=== PATIENT | male | born 1970 | race Caucasian/White ===

== ENCOUNTER 2016-07-31 11:14 | Emergency (ER) | payer MEDICARE, OTHER ==
--- NOTE | 2016-07-31 13:06 | ED ---
Extremity Problem HPI - General Chief complaint: Extremity Problem,Nontraumatic Stated complaint: DX HERNIA, LEG PAIN AND SWELLING Time Seen by Provider: 07/31/16 12:44 Source: patient, RN notes reviewed Mode of arrival: wheelchair Limitations: no limitations - History of Present Illness Initial comments: Patient is a 46-year-old male presents emergency room for evaluation. Patient states that having bilateral leg swelling for the past week. Patient states it' s been getting worse today. Patient also states that he has an umbilical hernia. Patient states he had repaired 2011. Patient states about 3 weeks ago he began having increasing pain and bulging in his umbilical area. Patient states he is due to see the surgeon for repair in a few days. Patient states he' s having an umbilical hernia repair in August. patient denies any redness or swelling at the area. Patient denies chest pain. patient denies shortness of breath. Patient denies headache or dizziness. Patient states he's having pain in both of his legs. Patient states it causes him pain to walk. Patient denies taking any medications. Patient denies history of diabetes, COPD, heart problems. Patient denies any recent trauma or injury to his legs. Patient denies fevers or chills. Patient states he smokes about a pack a day but has quit today. patient does admit that he was placed on Lasix about a week ago. Patient admits that he does not take Lasix as directed. Patient states he stopped taking Lasix after few days because he did not think it was working. - Related Data Home Medications Medication Instructions Recorded Confirmed Niacin [Niaspan] 1,000 mg PO HS 07/21/13 07/31/16 Atorvastatin Calcium [Lipitor] 20 mg PO DAILY 03/13/15 07/31/16 Potassium Chloride [K-Tab ER] 10 meq PO DAILY 07/31/16 07/31/16 Verapamil HCl [Verapamil ER] 120 mg PO DAILY 07/31/16 07/31/16 Previous Rx's Medication Instructions Recorded Furosemide [Lasix] 40 mg PO DAILY #7 tablet 07/31/16 Allergies Allergy/AdvReac Type Severity Reaction Status Date / Time No Known Allergies Allergy Verified 07/31/16 15:10 Review of Systems ROS Statement: Those systems with pertinent positive or pertinent negative responses have been documented in the HPI. ROS Other: All systems not noted in ROS Statement are negative. 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 History of Any Multi-Drug Resistant Organisms: None Reported Past Surgical History: Hernia Repair, Orthopedic Surgery Additional Past Surgical History / Comment(s): leg surg/pvd, TOTAL LEFT HIP Past Anesthesia/Blood Transfusion Reactions: No Reported Reaction Past Psychological History: No Psychological Hx Reported Smoking Status: Former smoker Past Alcohol Use History: Occasional Additional Past Alcohol Use History / Comment(s): This patient was a heavy drinker up until recently he was arrested for DUI and is currently under house arrest has stopped drinking for the last 2 months Past Drug Use History: Opiates General Exam - General Exam Comments Initial Comments: Sitting in exam room, no acute distress.. Limitations: no limitations General appearance: alert, in no apparent distress Head exam: Present: atraumatic, normocephalic, normal inspection Eye exam: Present: normal appearance ENT exam: Present: normal exam Neck exam: Present: normal inspection Respiratory exam: Present: normal lung sounds bilaterally. Absent: respiratory distress Cardiovascular Exam: Present: regular rate, normal rhythm, normal heart sounds GI/Abdominal exam: Present: soft, hernia (Palpable umbilical hernia). Absent: distended, guarding, rebound Extremities exam: Present: full ROM, normal capillary refill, pedal edema, calf tenderness (bilateral), other (Bilateral pitting pedal edema ) Back exam: Present: normal inspection Neurological exam: Present: alert, oriented X3, CN II-XII intact, normal gait Psychiatric exam: Present: normal affect, normal mood Skin exam: Present: warm, dry, intact, normal color. Absent: rash Course Vital Signs 07/31/16 07/31/16 07/31/16 11:36 14:41 15:36 Temperature 99.2 F 97.5 F L 98.6 F Pulse Rate 94 92 54 L Respiratory 20 18 18 Rate Blood Pressure 124/68 133/76 145/79 O2 Sat by Pulse 94 L 93 L 95 Oximetry 07/31/16 16:00 Temperature 98.1 F Pulse Rate 64 Respiratory 18 Rate Blood Pressure O2 Sat by Pulse 95 Oximetry Medical Decision Making - Medical Decision Making patient is a 46-year-old male since emergency room for evaluation of bilateral leg edema.labs show no concerning findings.Chest x-ray: Severe cardiomegaly with interstitial prominence may been the basis of mild venous congestion or chronic interstitial lung disease. Ultrasounds negative for DVTs. Thoroughly discussed with patient that he needs to continue taking Lasix as directed. Patient be written another prescription for Lasix. Patient given a dose of Lasix while he was here. Labs and imaging reviewed with Dr. Hylton who agrees with treatment plan. Patient will be discharged home. Return parameters discussed. - Lab Data Result diagrams: 07/31/16 13:11 07/31/16 13:11 Lab Results 07/31/16 07/31/16 07/31/16 Range/Units 13:11 13:11 13:11 WBC 7.7 (3.8-10.6) k/uL RBC 5.84 (4.30-5.90) m/uL Hgb 18.9 H (13.0-17.5) gm/dL Hct 58.8 H (39.0-53.0) % MCV 100.6 H (80.0-100.0) fL MCH 32.3 (25.0-35.0) pg MCHC 32.1 (31.0-37.0) g/dL RDW 13.8 (11.5-15.5) % Plt Count 129 L (150-450) k/uL Neutrophils % 66 % Lymphocytes % 23 % Monocytes % 7 % Eosinophils % 1 % Basophils % 0 % Neutrophils # 5.0 (1.3-7.7) k/uL Lymphocytes # 1.7 (1.0-4.8) k/uL Monocytes # 0.5 (0-1.0) k/uL Eosinophils # 0.1 (0-0.7) k/uL Basophils # 0.0 (0-0.2) k/uL Manual Slide Review Performed Large Platelets Present Hypochromasia Slight Poikilocytosis (manual Present Macrocytosis Slight PT INR APTT Sodium 145 (137-145) mmol/L Potassium 4.7 (3.5-5.1) mmol/L Chloride 103 (98-107) mmol/L Carbon Dioxide 30 (22-30) mmol/L Anion Gap 12 mmol/L BUN 20 (9-20) mg/dL Creatinine 1.10 (0.66-1.25) mg/dL Est GFR (MDRD) Af Amer >60 (>60 ml/min/1.73 sqM) Est GFR (MDRD) Non-Af >60 (>60 ml/min/1.73 sqM) Glucose 86 (74-99) mg/dL Plasma Lactic Acid Carl (0.7-2.0) mmol/L Calcium 9.7 (8.4-10.2) mg/dL Magnesium 2.0 (1.6-2.3) mg/dL Total Bilirubin 1.1 (0.2-1.3) mg/dL AST 33 (17-59) U/L ALT 40 (21-72) U/L Alkaline Phosphatase 121 (38-126) U/L Total Creatine Kinase 93 (55-170) U/L CK-MB (CK-2) 2.2 (0.0-2.4) ng/mL CK-MB (CK-2) Rel Index 2.4 Troponin I 0.017 (0.000-0.034) ng/mL NT-Pro-B Natriuret Pep pg/mL Total Protein 7.6 (6.3-8.2) g/dL Albumin 4.2 (3.5-5.0) g/dL Amylase 62 (30-110) U/L Lipase 252 (23-300) U/L 07/31/16 07/31/16 07/31/16 Range/Units 13:11 13:11 13:11 WBC (3.8-10.6) k/uL RBC (4.30-5.90) m/uL Hgb (13.0-17.5) gm/dL Hct (39.0-53.0) % MCV (80.0-100.0) fL MCH (25.0-35.0) pg MCHC (31.0-37.0) g/dL RDW (11.5-15.5) % Plt Count (150-450) k/uL Neutrophils % % Lymphocytes % % Monocytes % % Eosinophils % % Basophils % % Neutrophils # (1.3-7.7) k/uL Lymphocytes # (1.0-4.8) k/uL Monocytes # (0-1.0) k/uL Eosinophils # (0-0.7) k/uL Basophils # (0-0.2) k/uL Manual Slide Review Large Platelets Hypochromasia Poikilocytosis (manual Macrocytosis PT BUSINESS MACHINE OPERATOR INR BUSINESS MACHINE OPERATOR APTT BUSINESS MACHINE OPERATOR Sodium (137-145) mmol/L Potassium (3.5-5.1) mmol/L Chloride (98-107) mmol/L Carbon Dioxide (22-30) mmol/L Anion Gap mmol/L BUN (9-20) mg/dL Creatinine (0.66-1.25) mg/dL Est GFR (MDRD) Af Amer (>60 ml/min/1.73 sqM) Est GFR (MDRD) Non-Af (>60 ml/min/1.73 sqM) Glucose (74-99) mg/dL Plasma Lactic Acid Carl 1.1 (0.7-2.0) mmol/L Calcium (8.4-10.2) mg/dL Magnesium (1.6-2.3) mg/dL Total Bilirubin (0.2-1.3) mg/dL AST (17-59) U/L ALT (21-72) U/L Alkaline Phosphatase (38-126) U/L Total Creatine Kinase (55-170) U/L CK-MB (CK-2) (0.0-2.4) ng/mL CK-MB (CK-2) Rel Index Troponin I (0.000-0.034) ng/mL NT-Pro-B Natriuret Pep 944 pg/mL Total Protein (6.3-8.2) g/dL Albumin (3.5-5.0) g/dL Amylase (30-110) U/L Lipase (23-300) U/L 07/31/16 Range/Units 15:20 WBC (3.8-10.6) k/uL RBC (4.30-5.90) m/uL Hgb (13.0-17.5) gm/dL Hct (39.0-53.0) % MCV (80.0-100.0) fL MCH (25.0-35.0) pg MCHC (31.0-37.0) g/dL RDW (11.5-15.5) % Plt Count (150-450) k/uL Neutrophils % % Lymphocytes % % Monocytes % % Eosinophils % % Basophils % % Neutrophils # (1.3-7.7) k/uL Lymphocytes # (1.0-4.8) k/uL Monocytes # (0-1.0) k/uL Eosinophils # (0-0.7) k/uL Basophils # (0-0.2) k/uL Manual Slide Review Large Platelets Hypochromasia Poikilocytosis (manual Macrocytosis PT 10.7 INR 1.1 APTT 24.3 Sodium (137-145) mmol/L Potassium (3.5-5.1) mmol/L Chloride (98-107) mmol/L Carbon Dioxide (22-30) mmol/L Anion Gap mmol/L BUN (9-20) mg/dL Creatinine (0.66-1.25) mg/dL Est GFR (MDRD) Af Amer (>60 ml/min/1.73 sqM) Est GFR (MDRD) Non-Af (>60 ml/min/1.73 sqM) Glucose (74-99) mg/dL Plasma Lactic Acid Carl (0.7-2.0) mmol/L Calcium (8.4-10.2) mg/dL Magnesium (1.6-2.3) mg/dL Total Bilirubin (0.2-1.3) mg/dL AST (17-59) U/L ALT (21-72) U/L Alkaline Phosphatase (38-126) U/L Total Creatine Kinase (55-170) U/L CK-MB (CK-2) (0.0-2.4) ng/mL CK-MB (CK-2) Rel Index Troponin I (0.000-0.034) ng/mL NT-Pro-B Natriuret Pep pg/mL Total Protein (6.3-8.2) g/dL Albumin (3.5-5.0) g/dL Amylase (30-110) U/L Lipase (23-300) U/L 07/31/16 15:35 Normal sinus rhythm, ventricular rate 94 bpm, IL interval 138 ms, QRS duration 94 ms, QT/QTC 356/445 ms - Radiology Data Radiology results: report reviewed, image reviewed Disposition Clinical Impression: Bilateral leg edema Disposition: HOME SELF-CARE Condition: Good Instructions: Leg Edema (ED) Additional Instructions: Take Lasix as directed. Please follow up with primary care provider in 1-2 days. If any new symptom arises or symptoms worsen, return to ER as soon as possible. Prescriptions: Furosemide [Lasix] 40 mg PO DAILY #7 tablet Referrals: Victor Manuel Bianchi Jr, DO [Primary Care Provider] - 1-2 days Time of Disposition: 15:25
[2016-07-31 13:28] LABS: Basophils % (A) 0 %; CHCM 31.9; Eosinophils # (A) 0.1 k/uL (0-0.7); Eosinophils % (A) 1 %; HCT 58.8 % (39.0-53.0); HDW 2.75; HGB 18.9 gm/dL (13.0-17.5); Hypochromasia Slight; Luc # (Auto) 0.31; Luc % (Auto) 4; Lymphocytes # (A) 1.7 k/uL (1.0-4.8); Lymphocytes % (A) 23 %; MCH 32.3 pg (25.0-35.0); MCHC 32.1 g/dL (31.0-37.0); MCV 100.6 fL (80.0-100.0); Macrocytosis Slight; Mean Platelet Volume 8.6; Monocytes # (A) 0.5 k/uL (0-1.0); Monocytes % (A) 7 %; Neutrophils % (A) 66 %; RBC 5.84 m/uL (4.30-5.90); RDW 13.8 % (11.5-15.5); WBC 7.7 k/uL (3.8-10.6); WBC (Perox) 7.47
--- NOTE | 2016-07-31 13:36 | XR ---
EXAMINATION TYPE: XR chest 2V DATE OF EXAM: 07/31/2016 1:32 PM COMPARISON: NONE TECHNIQUE: PA and lateral views submitted. HISTORY: Chest pain FINDINGS: The lungs are clear and there is no pneumothorax, pleural effusion, or focal pneumonia. The heart i s enlarged and there is a coarsened interstitium. Arthropathy of the shoulders with hypertrophic and degenerative change of the spine. IMPRESSION: 1. Severe cardiomegaly with interstitial prominence may been the basis of mild venous congestion or c hronic interstitial lung disease. Correlate clinically..
[2016-07-31 13:37] LABS: ALT 40 U/L (21-72); AST 33 U/L (17-59); Alkaline Phosphatase 121 U/L (38-126); Amylase 62 U/L (30-110); Anion Gap 12 mmol/L; Blood Urea Nitrogen 20 mg/dL (9-20); Calcium 9.7 mg/dL (8.4-10.2); Carbon Dioxide 30 mmol/L (22-30); Chloride 103 mmol/L (98-107); Glucose 86 mg/dL (74-99); Non-African American GFR(MDRD) >60 (>60 ml/min/1.73 sqM); Potassium 4.7 mmol/L (3.5-5.1); Sodium 145 mmol/L (137-145); Total Bilirubin 1.1 mg/dL (0.2-1.3); Total Protein 7.6 g/dL (6.3-8.2)
[2016-07-31 14:04] LABS: Creatine Kinase MB 2.2 ng/mL (0.0-2.4); Troponin I 0.017 ng/mL (0.000-0.034)
--- NOTE | 2016-07-31 14:30 | US ---
EXAMINATION TYPE: US venous doppler duplex LE BI DATE OF EXAM: 07/31/2016 2:05 PM COMPARISON: US CLINICAL HISTORY: Pain. Bilateral leg pain and swelling SIDE PERFORMED: Bilateral TECHNIQUE: The lower extremity deep venous system is examined utilizing real time linear array sonog mauri with graded compression, doppler sonography and color-flow sonography. VESSELS IMAGED: External Iliac Vein (EIV) Common Femoral Vein Deep Femoral Vein Greater Saphenous Vein * Femoral Vein Popliteal Vein Small Saphenous Vein * Proximal Calf Veins (* superficial vessels) Right Leg: Appears negative for DVT Left Leg: Appears negative for DVT Multiple lymph nodes within bilateral groin with largest on left measuring 3.8cm and largest on right measuring 3.7cm IMPRESSION: 1. No diagnostic evidence of DVT. 2. Inguinal adenopathy.
[2016-07-31 14:42] VITALS: RESP 18
[2016-07-31 14:48] LABS: Manual Review Performed
[2016-07-31 15:02] LABS: Large Platelets Present
[2016-07-31] MEDS ORDERED: FUROSEMIDE 10 MG/ML 4 ML VIAL IV STA (15:27)
[2016-07-31 15:37] VITALS: BP 145/79
[2016-07-31 15:40] LABS: INR 1.1 (<1.1); Partial Thromboplastin Time 24.3 sec (22.0-30.0)
[2016-07-31 16:01] VITALS: PULSE 64; TEMP 98.1
[2016-07-31 16:27] LABS: Prothrombin Time 10.7 sec (9.0-12.0)
== END 2016-07-31 16:40 | disposition home or self-care (01) ==
LOC: EC 11:14
DX: K42.9 Umbilical hernia without obstruction or gangrene (principal); R60.0 Localized edema; I51.7 Cardiomegaly; M79.604 Pain in right leg; M79.605 Pain in left leg; Z87.891 Personal history of nicotine dependence; Z79.899 Other long term (current) drug therapy; Z98.890 Other specified postprocedural states
CPT/HCPCS: 36415; 93005; 83880; 80053; 82150; 82550; 82553; 83605; 83690; 83735; 84484; 85025; 85610; 85730; 87040; 71020; 93970; 99284; 96374; J1940

== ENCOUNTER 2016-12-09 13:11 | Day surgery (SDC) | payer MEDICARE, BC, OTHER ==
[2016-12-07 15:31] VITALS: BMI 35.7
[~2016-12-09 13:11] MED LIST: ALPRAZolam 0.25 MG TAB PO PRN; ALPRAZolam 0.5 MG TAB PO PRN; ASPIRIN 325 MG TAB PO STA; ATORVASTATIN 80 MG TAB PO STA; NITROGLYCERIN SL TABS 0.4 MG TAB SUBLINGUAL PRN; SODIUM CHLORIDE 0.9% 1,000 ML in EMPTY BAG 1 BAG IV ONE
[2016-12-09] MEDS ORDERED: fentaNYL (PF) 50 MCG/ML 2 ML AMP ONE (13:43)
[2016-12-09] MEDS ORDERED: LIDOCAINE 2% INJ 20 MG/ML (20 ML MDV) ONE (13:43)
[2016-12-09] MEDS ORDERED: VERAPAMIL 2.5 MG/ML 2 ML AMP ONE (13:43)
[2016-12-09 13:48] VITALS: RESP 18
[2016-12-09] MEDS ORDERED: IV FLUID CONTINUATION 1,000 ML IV ONE (13:48)
[2016-12-09] MEDS ORDERED: HEPARIN SODIUM 1,000 UN/ML (10ML VL) ONE (14:03)
[2016-12-09] MEDS ORDERED: fentaNYL (PF) 50 MCG/ML 2 ML AMP IV ONE (14:10)
[2016-12-09 14:12] LABS: Basophils % (A) 0 %; CH 30.2; CHCM 31.1; Eosinophils # (A) 0.1 k/uL (0-0.7); Eosinophils % (A) 2 %; HCT 53.3 % (39.0-53.0); HDW 2.34; Hypochromasia Slight; Luc # (Auto) 0.26; Luc % (Auto) 4; Lymphocytes # (A) 1.8 k/uL (1.0-4.8); Lymphocytes % (A) 26 %; MCH 31.1 pg (25.0-35.0); MCHC 31.8 g/dL (31.0-37.0); MCV 97.7 fL (80.0-100.0); Macrocytosis Slight; Mean Platelet Volume 9.2; Monocytes # (A) 0.5 k/uL (0-1.0); Monocytes % (A) 7 %; Neutrophils # (A) 4.5 k/uL (1.3-7.7); Neutrophils % (A) 62 %; RBC 5.46 m/uL (4.30-5.90); RDW 15.8 % (11.5-15.5); WBC 7.1 k/uL (3.8-10.6); WBC (Perox) 7.06
[2016-12-09] MEDS ORDERED: LIDOCAINE 2% INJ 20 MG/ML SQ ONE (14:15)
[2016-12-09] MEDS ORDERED: MIDAZOLAM 2 MG/2 ML VIAL ONE (14:16)
[2016-12-09] MEDS ORDERED: VERAPAMIL SYRINGE (5 MG/10 ML) INTRAARTER ONE (14:16)
[2016-12-09] MEDS ORDERED: MIDAZOLAM 2 MG/2 ML VIAL IV ONE (14:19)
[2016-12-09] MEDS ORDERED: HEPARIN SODIUM 1,000 UN/ML (10ML VL) IV ONE (14:24)
[2016-12-09] MEDS ORDERED: IOHEXOL 350 MG/ML 125ML BOTTLE INJ ONE (14:30)
[2016-12-09] MEDS ORDERED: RX INFO: IV CONTRAST WAS GIVEN 1 EACH MISC MISCELLANE PRN (14:41)
[2016-12-09] MEDS ORDERED: SODIUM CHLORIDE 0.9% 1,000 ML IV SCH (14:45)
[2016-12-09] MEDS ORDERED: CARVEDILOL 6.25 MG TAB PO SCH (18:30)
[2016-12-09 18:34] VITALS: BP 106/77; PULSE 89; TEMP 98
[2016-12-09] MEDS ORDERED: LISINOPRIL 2.5 MG TAB PO SCH (21:00)
--- NOTE | 2016-12-10 06:09 | CC ---
CARDIAC CATHETERIZATION REPORT DATE OF SERVICE: 12/09/2016 Mr. Larson is a 46-year-old male with known history of hypertension, hyperlipidemia, prior history of smoking, who presented recently with symptoms of congestive heart failure and was found to have significant cardiomyopathy. In view of that, recommendations were made regarding cardiac catheterization. The procedures as well as risks and complications were discussed with the patient who is in full understanding and agreement. PROCEDURE: The patient was brought to the nitriles lab technician in a fasting semi state after receiving fentanyl, Benadryl and achieving moderate conscious sedated state. Using Xylocaine anesthesia in Seldinger technique, 6-Chilean sheath was introduced in the right radial artery. Selective right and left coronary angiography performed using 5-Chilean, 3.5 bend right Nargis catheter. Multiple views of the coronary arteries including hemiaxial views were obtained. Following that, 5-Chilean tight pigtail catheter was introduced into the left ventricle and a 30-degree FLETCHER view of the left ventricle was obtained. Following that, catheter and sheaths were removed. Hemostasis was obtained with deployment of a R band. There was no immediate complication. The patient was returned to his room in stable condition. Of note, the patient received 5000 units of intravenous heparin as well as intra- arterial verapamil. FINDING: LEFT MAIN: This is a short size vessel trifurcating in the left circumflex, left anterior descending artery and ramus intermedius. Left main coronary artery is without any significant obstructive coronary artery disease. LEFT ANTERIOR DESCENDING ARTERY: This is a large-sized vessel reaching to the apex with a wraparound apex segment giving rise to a large diagonal branch in the mid segment. The left anterior descending artery and its branches have no evidence of obstructive coronary artery disease. LEFT CIRCUMFLEX: This is a nondominant vessel, large in caliber, giving rise to a large obtuse marginal branch. The left circumflex as well as branches have no evidence of obstructive coronary artery disease. RAMUS INTERMEDIUS: This is a large-sized vessel that has no evidence of high-grade stenosis. RIGHT CORONARY ARTERY: This is a large dominant vessel bifurcating distally PDA and posterolateral segment and branches. The right coronary artery and its branches have no evidence of obstructive coronary artery disease. LEFT VENTRICULOGRAM: Left ventriculogram was performed in 30-degree FLETCHER view and revealed a dilated left ventricle with severe global hypokinesis. The ejection fraction is estimated at 15% to 20%. There was arrhythmia induced mitral regurgitation. HEMODYNAMICS: There was no gradient across the aortic valve. The left ventricular end- diastolic pressure was 24 mmHg. CONCLUSION: 1. Normal coronary arteries. 2. Severely impaired left ventricular systolic function. RECOMMENDATION: In view of finding anatomy, I have recommended continued medical therapy with aggressive treatment for his nonischemic cardiomyopathy and if there is no improvement in left ventricular systolic function then the patient will be a candidate to undergo an ICD implantation. Those findings and recommendation were discussed with the patient and his family and they are in full understanding and agreement. DURATION OF THE PROCEDURE: 21 minutes. MMGIANCARLOL / DANIELN: [id number] /
--- NOTE | 2016-12-10 06:15 | CC ---
CARDIAC CATHETERIZATION REPORT December 09, 2016 Re: Joaquim Larson Dear Dr. Bianchi: I had the opportunity to performed cardiac catheterization on Mr. Larson at [facility] on the 09 of December and a full copy of the procedure note will be forwarded to you. In brief he was found to have normal coronary arteries with a severely impaired left ventricular systolic function and based on those findings, I would recommend to maximize his treatment for nonischemic cardiomyopathy with close followup of his ejection fraction. If he has no improvement, then I believe he will be a candidate for an ICD implantation. Thank you again for allowing me the opportunity to participate in his care. Please feel free to call for any questions. Sincerely yours, Roberto Torres MD. LEVON / KYMBERLY: [id number] /
[2016-12-10] MEDS ORDERED: POTASSIUM CHLORIDE ER 10 MEQ TAB.ER.PRT PO SCH (09:00)
[2016-12-10] MEDS ORDERED: FUROSEMIDE 40 MG TAB PO SCH (09:00)
== END 2016-12-09 20:19 | disposition home or self-care (01) ==
LOC: CATHCVL 13:11 → 3OBS 14:31 → CATHCVL 20:19
PROVIDERS: ATTEND Internal Medicine Interventional Cardiology
DX: I11.0 Hypertensive heart disease with heart failure (principal); I50.23 Acute on chronic systolic (congestive) heart failure; F17.211 Nicotine dependence, cigarettes, in remission; I42.8 Other cardiomyopathies; Z82.49 Family history of ischemic heart disease and other diseases of the circulatory system; E78.2 Mixed hyperlipidemia; G47.33 Obstructive sleep apnea (adult) (pediatric); Z99.81 Dependence on supplemental oxygen; Z79.82 Long term (current) use of aspirin; Z79.899 Other long term (current) drug therapy
CPT/HCPCS: 99152; 93458; 85025; C1894; C1769; J2001; J2250; J3010; J1644; Q9967

== ENCOUNTER → 2017-09-02 | Outpatient (CLI) | payer MEDICARE, OTHER ==
--- NOTE | 2017-09-02 14:51 | PN ---
PROGRESS NOTE DATE OF SERVICE: 09/02/2017 47-year-old gentleman has been followed in [facility] for treatment of obstructive sleep apnea-hypopnea syndrome. Sleep studies in 2016 showed that the patient has severe sleep apnea, but patient had difficulties during titration with the positive air pressure equipment and he did not want to start treatment with CPAP at that time. About 4 months ago, patient had a heart attack. Presently, he continues to snore while he sleeps and has multiple awakenings from sleep. Imperial Sleepiness Scale significantly increased at a very high range 21. MEDICATIONS: Spironolactone, lisinopril, carvedilol, atorvastatin, levofloxacin, Lasix, and the patient is also on oxygen supplement. PHYSICAL EXAM: GENERAL: Patient in no distress. VITAL SIGNS: BP 107/70, HR 95, RR 20, height 5 feet 8 and a half inches and weight 257.0, BMI 38.3, temperature 97.9, respiration 20, oxygen saturation at room air 80%. HEENT: Oropharynx low position of soft palate. Wide neck 17-1/2 inches in circumference. LUNGS: Rales on the bases of the lungs on both sides. HEART: S1, S2 regular. ABDOMEN: Obese. EXTREMITIES: 1 to 2+ bilateral lower leg edema. IMPRESSION: 1. Severe obstructive sleep apnea-hypopnea syndrome documented in 2016. At that time, patient did not get treatment with positive air pressure and did not feel comfortable. 2. Hypertension. 3. Coronary artery disease, status post heart attack about 4 months ago. 4. Congestive heart failure with rales in the low range of the lungs, oxygen desaturation, tachypnea and swelling of the legs. 5. Hyperlipidemia. 6. Status post left hip replacement. 7. Status post nasal fracture. 8. History of smoking for 20 pack years, quit about 2 years ago. 9. Status post left lower leg venous surgery. PLAN: 1. The patient was recommended to go to emergency room for treatment of congestive heart failure. 2. Sleep studies for reevaluation of patient breathing during the sleep and CPAP/BiPAP titration for correction of respiratory abnormalities during sleep. 3. Continue oxygen supplement 24 hours. 4. Losing weight. 5. No driving if feeling any sleepiness. 6. Sleep hygiene with regular time in bed for at least 8 hours. Thank you very much for allowing me to participate in management of your patient. Sincerely, Travis Forrester MD, PhD, FAASM Diplomat of [place] [employer] [place] [employer] Urology Physician Assistant of [facility] MMKRISHNA / KYMBERLY: [id number] /
== END | disposition home or self-care (01) ==
LOC: SLEEP 13:12
PROVIDERS: ATTEND Internal Medicine
DX: G47.33 Obstructive sleep apnea (adult) (pediatric) (principal); I10 Essential (primary) hypertension; I25.10 Atherosclerotic heart disease of native coronary artery without angina pectoris; I50.9 Heart failure, unspecified; E78.5 Hyperlipidemia, unspecified; Z96.642 Presence of left artificial hip joint; Z87.891 Personal history of nicotine dependence; Z87.81 Personal history of (healed) traumatic fracture; Z98.890 Other specified postprocedural states

== ENCOUNTER 2017-09-24 11:04 | Day surgery (SDC) | payer MEDICARE, OTHER ==
[2017-09-20 16:05] VITALS: BMI 39.8
[~2017-09-24 11:04] MED LIST changes: -ALPRAZolam 0.25 MG TAB PO PRN; -ALPRAZolam 0.5 MG TAB PO PRN; -ASPIRIN 325 MG TAB PO STA; -ATORVASTATIN 80 MG TAB PO STA; +LACTATED RINGERS 1,000 ML IV SCH; +LIDOCAINE 1% 20 ML VIAL (10MG/ML) FOR IV START INTRADERMA PRN; -NITROGLYCERIN SL TABS 0.4 MG TAB SUBLINGUAL PRN; -SODIUM CHLORIDE 0.9% 1,000 ML in EMPTY BAG 1 BAG IV ONE
[2017-09-24 11:32] VITALS: RESP 16; TEMP 97.6
[2017-09-24] MEDS ORDERED: PROPOFOL 10 MG/ML 20 ML VIAL IV ONE (11:53)
[2017-09-24] MEDS ORDERED: KETAMINE 10 MG/ML 20 ML VIAL ONE (11:53)
[2017-09-24] MEDS ORDERED: MIDAZOLAM 2 MG/2 ML VIAL ONE (11:53)
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
--- NOTE | 2017-09-24 12:21 | P.OP ---
Date of Procedure: 09/24/17 Preoperative Diagnosis: GI bleed Postoperative Diagnosis: Internal and external hemorrhoids Diverticulosis Procedure(s) Performed: Colonoscopy Anesthesia: MAC Surgeon: Drew Mahoney Pathology: none sent Condition: stable Disposition: PACU Description of Procedure: The patient's placed on the endoscopy table in the lateral position. He received IV sedation. Digital rectal exam was performed which revealed internal /external hemorrhoids. The flexible colonoscope was then placed patient anus passed throughout the entire colon. The ileocecal valve was visualized. The cecum, ascending transverse colon appeared normal. In the descending; there is moderate diverticular changes. [Back the rectum this appeared normal. Scope was withdrawn through the anus and internal and external hemorrhoids were noted. There is no evidence of any GI bleed.
[2017-09-24 13:08] VITALS: BP 142/92; PULSE 86
== END 2017-09-24 13:18 | disposition home or self-care (01) ==
LOC: ORWHC2ENDO 11:04
PROVIDERS: ATTEND Surgery
DX: K64.8 Other hemorrhoids (principal); K64.4 Residual hemorrhoidal skin tags; K57.30 Diverticulosis of large intestine without perforation or abscess without bleeding; I25.119 Atherosclerotic heart disease of native coronary artery with unspecified angina pectoris; I11.0 Hypertensive heart disease with heart failure; I50.9 Heart failure, unspecified; G47.33 Obstructive sleep apnea (adult) (pediatric); E78.5 Hyperlipidemia, unspecified; M19.90 Unspecified osteoarthritis, unspecified site; N42.9 Disorder of prostate, unspecified; H54.40 Blindness, one eye, unspecified eye; Z79.899 Other long term (current) drug therapy; Z99.81 Dependence on supplemental oxygen; Z96.641 Presence of right artificial hip joint; Z87.891 Personal history of nicotine dependence
CPT/HCPCS: 45378; J2250; J2704

== ENCOUNTER 2017-10-28 11:46 | Day surgery (SDC) | payer MEDICARE, OTHER ==
[2017-10-21 11:32] VITALS: BMI 36.5
[~2017-10-28 11:46] MED LIST changes: -LACTATED RINGERS 1,000 ML IV SCH; -LIDOCAINE 1% 20 ML VIAL (10MG/ML) FOR IV START INTRADERMA PRN; +ceFAZolin 1,000 MG in SODIUM CHLORIDE 0.9% IRRIGATIO 250 ML IRRIGATION ONE; +ceFAZolin IN SWFI 2 GM/20 ML SYRINGE IVP ONE
[2017-10-28] MEDS ORDERED: ceFAZolin IN SWFI 2 GM/20 ML SYRINGE IVP ONE (12:00)
[2017-10-28] MEDS ORDERED: ceFAZolin 1,000 MG in SODIUM CHLORIDE 0.9% IRRIGATIO 250 ML IRRIGATION ONE (12:00)
[2017-10-28] MEDS: SODIUM CHLORIDE 0.9% 1,000 ML IV SCH ×3 (12:16→15:21)
[2017-10-28] MEDS ORDERED: SODIUM CHLORIDE 0.9% 500 ML IV ONE (12:52)
[2017-10-28] MEDS ORDERED: fentaNYL (PF) 50 MCG/ML 2 ML AMP ONE (12:52)
[2017-10-28] MEDS ORDERED: MIDAZOLAM 2 MG/2 ML VIAL ONE (12:52)
[2017-10-28] MEDS ORDERED: IOPAMIDOL-370 50ML BTL INJ ONE (13:15)
[2017-10-28] MEDS ORDERED: HYDROcodone/APAP 5-325MG 1 EACH TAB PO PRN (13:21)
[2017-10-28] MEDS ORDERED: FUROSEMIDE 40 MG TAB PO PRN (13:21)
[2017-10-28] MEDS ORDERED: ACETAMINOPHEN TAB 325 MG TAB PO PRN (13:21)
[2017-10-28] MEDS ORDERED: LIDOCAINE 1% INJ 10MG/ML (20 ML MDV) ONE ×2 (13:28)
[2017-10-28] MEDS ORDERED: LIDOCAINE 1% INJ 10MG/ML (20 ML MDV) SQ ONE (13:33)
[2017-10-28] MEDS ORDERED: ACETAMINOPHEN IV (For NPO) 1,000 MG in EMPTY BAG 1 BAG IVPB ONE (15:00)
--- NOTE | 2017-10-28 15:32 | LTR ---
October 28, 2017 Dear Victor Manuel: I had the pleasure of seeing Joaquim Larson in electrophysiology followup. Joaquim underwent a single-chamber ICD implantation for primary prevention of sudden cardiac on account of his cardiomyopathy and heart failure. He will continue to follow with you and Dr. Torres as before. Thank you for entrusting us with the care of your patient. Warm regards. Sincerely, LEVON / KYMBERLY: [id number] /
--- NOTE | 2017-10-28 15:32 | CE ---
CARDIAC ELECTROPHYSIOLOGY REPORT Joaquim Larson is a 47-year-old male patient of Dr. Bianchi and Dr. Torres who has severe non-ischemic cardiomyopathy that has not improved with medical treatment. Ejection fraction remains less than 30%. He has class 2-3 heart failure. His Lasix dose was recently increased in the last month. Patient was brought to the EP lab in a fasting state. Written informed consent was obtained prior to the procedure. The left shoulder area was prepped and draped as per protocol. 1% lidocaine used for local anesthesia. A 4 cm incision was made parallel to the deltopectoral groove, about 1.5 cm medial to it. The incision was carried down to the level of the pectoralis muscle. A subfascial pocket was made. The left axillary vein was accessed at a single point and via appropriately-sized introducer sheath. A Medtronic ICD lead 69 35 cm Sprint Quattro MRI was screwed in the mid RV septum. This current VG protocol was was employed. The sheath was removed. The lead was secured to the underlying pectoralis fascia using 2 nonabsorbable sutures. Pocket was irrigated with antibiotic director mobile media solutions was connected to the generator. The generator was implanted. This is a Medtronic single- chamber ICD Visiaf MRI, VR, model number [id number], serial number [id number]. The lead and generator were then placed in subfascial pocket and the wound was closed in 3 layers and dressed per protocol. RESULTS: Successful single-chamber implantation for primary prevention of sudden cardiac . Device is programmed to 2 zones of therapy with appropriate antitachycardia pacing cardioversion defibrillation with long detection intervals to minimize inappropriate shocks. The patient tolerated the procedure well without any acute complications. Now his medication will be maximized even further and he will be brought back for ICD testing under anesthesia within the next 3 months. MMODL / IJN: [id number] /
[2017-10-28] MEDS: CARVEDILOL 6.25 MG TAB PO SCH (18:30)
[2017-10-28] MEDS: ceFAZolin IN SWFI 2 GM/20 ML SYRINGE IVP SCH ×2 (18:30→23:05)
[2017-10-28] MEDS: LISINOPRIL 5 MG TAB PO SCH (20:09)
[2017-10-29] MEDS: ceFAZolin IN SWFI 2 GM/20 ML SYRINGE IVP SCH ×2 (05:33→11:33)
[2017-10-29 08:05] VITALS: BP 117/80; PULSE 80; RESP 18; TEMP 98.3
--- NOTE | 2017-10-29 08:06 | P.DS ---
Providers Attending physician: Zohaib Mina Primary care physician: [facility] Course: Patient is doing well. Small hematoma over the ICD site. No chest discomfort. Just some local discomfort. 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 status post single chamber ICD implant Plan May go home after completion of IV antibiotics, if chest x-ray is within normal limits and if device interrogation is within normal limits Patient Condition at Discharge: Stable Plan - Discharge Summary Discharge Rx Participant: No New Discharge Prescriptions: No Action Carvedilol [Coreg] 6.25 mg PO BID Lisinopril [Zestril] 5 mg PO BID Atorvastatin [Lipitor] 20 mg PO DAILY Furosemide [Lasix] 40 mg PO BID PRN PRN Reason: Edema Discharge Medication List Carvedilol [Coreg] 6.25 mg PO BID 12/07/16 [History] Atorvastatin [Lipitor] 20 mg PO DAILY 09/20/17 [History] Lisinopril [Zestril] 5 mg PO BID 09/20/17 [History] Furosemide [Lasix] 40 mg PO BID PRN 10/21/17 [History]
[2017-10-29] MEDS: LISINOPRIL 5 MG TAB PO SCH (08:10)
[2017-10-29] MEDS: CARVEDILOL 6.25 MG TAB PO SCH (08:10)
[2017-10-29] MEDS ORDERED: ATORVASTATIN 20 MG TAB PO SCH (09:00)
--- NOTE | 2017-10-29 10:27 | XR ---
EXAMINATION TYPE: XR chest 2V DATE OF EXAM: 10/29/2017 COMPARISON: Prior chest 07/31/2016 HISTORY: Lead placement check TECHNIQUE: Frontal and lateral views of the chest are obtained. FINDINGS: There is been interval placement of the generator in the left pectoral region, intracardia c lead in the right ventricle. No evident pneumothorax or pleural effusion. Heart remains enlarged. I nterstitium is increased. Pulmonary vascularity and jess are similar appearance. Prominent lung volum e may be indicative of COPD. IMPRESSION: No evident complication status post defibrillator placement, there may be a chronic comp onent of pulmonary venous hypertension and interstitial edema.
[2017-10-29] MEDS: SODIUM CHLORIDE 0.9% 1,000 ML IV SCH ×2 (11:32)
== END 2017-10-29 12:35 | disposition home or self-care (01) ==
LOC: CATHEP 11:46 → 3OBS 14:32 → CATHEP 10-29 12:35
PROVIDERS: ATTEND Internal Medicine Clinical Cardiac Electrophysiology
DX: I42.8 Other cardiomyopathies (principal); I11.0 Hypertensive heart disease with heart failure; I50.23 Acute on chronic systolic (congestive) heart failure; Z00.6 Encounter for examination for normal comparison and control in clinical research program; F17.210 Nicotine dependence, cigarettes, uncomplicated; G47.33 Obstructive sleep apnea (adult) (pediatric); E78.2 Mixed hyperlipidemia; Z79.899 Other long term (current) drug therapy; Z82.49 Family history of ischemic heart disease and other diseases of the circulatory system
CPT/HCPCS: 94760; 33249; 71046; C1769 ×2; C1892; C1895; C1722; J2250; J0690 ×3; J2001; J3010; Q9967

== ENCOUNTER → 2017-11-25 | Outpatient (CLI) | payer MEDICARE, OTHER ==
--- NOTE | 2017-11-25 14:57 | SFUN ---
SLEEP CENTER FOLLOW UP NOTE DATE OF SERVICE: 11/25/2017 47-year-old gentleman has been followed in Sleep Center for treatment of severe obstructive sleep apnea-hypopnea syndrome. The patient came for followup visit. He received his new CPAP unit about 3 months ago. Recently he is able to use it every night and sleeps better with the machine and feels better during the day. No snoring with the machine. [place] Sleepiness Scale today is 6, which is in normal range. I checked his CPAP unit. CPAP pressure is 8 cm of water. Usage is 27/30 nights and 19/30 nights for more than 4 hours, average 5.3 hours. High leak, 97 L/minute. Apnea-hypopnea index 7.0. MEDICATIONS: Spironolactone, lisinopril carvedilol, atorvastatin, levofloxacin, Lasix, Patient also using oxygen supplementation with his CPAP unit. PHYSICAL EXAM: GENERAL Patient in no distress. VITAL SIGNS BP 134/80, HR 95, RR 16, weight 243.6, temperature 98.3. HEENT PERRLA, EOMI, evaluation of oropharynx showed extremely low position of soft palate. NECK Supple, no JVD. Thyroid is not palpable. LUNGS Clear to percussion and to auscultation. Good air exchange. No wheezing or rhonchi. HEART S1, S2 regular. No murmurs, gallops, or rubs. ABDOMEN Obese. Soft and nontender. Bowel sounds are present. No organomegaly appreciated. EXTREMITIES No clubbing or cyanosis. CONSTRUCTION SALES REPRESENTATIVE Awake, alert, and oriented X3. Cranial nerves 2 to 7 intact. There is no fasciculation or atrophy. noted. No focal deficits observed. IMPRESSION: 1. Extremely severe obstructive sleep apnea-hypopnea syndrome; apnea-hypopnea index 80.8% with severe oxygen desaturation, mostly on control with CPAP at 8 cm of water with oxygen supplement. The patient benefitting from treatment. 2. Hypertension. 3. Coronary artery disease, status post heart attack. 4. Status post permanent pacemaker insertion recently. 5. History of congestive heart failure. 6. Hyperlipidemia. 7. Status post left hip replacement. 8. Status post nasal fracture. 9. History of smoking in the past, about 20 pack years, quit 2 years ago. 10.Status post left lower leg surgery for venous problems. PLAN: 1. Patient will continue to use CPAP equipment every night for the whole night. I will slightly increase CPAP pressure to 10 cm of water. I will put machine to automatic regimen with the range of pressure 7-10. 2. Losing weight. 3. Sleep hygiene with regular time in bed for at least 7.5 - 8 hours. 4. No driving if feels any sleepiness. 5. Patient will continued to use the same mask with attention to possible leak. Also, we may consider to use different style of mask, possibly [place]. Thank you very much for allowing me to participate in management of your patient. Sincerely, Travis Forrester MD, PhD, FAASM Diplomat of [place] [employer] [place] [employer] Interventional Nurse of [facility] [place] MMODL / IJN: [id number] /
== END | disposition home or self-care (01) ==
LOC: SLEEP 13:53
PROVIDERS: ATTEND Internal Medicine
DX: G47.33 Obstructive sleep apnea (adult) (pediatric) (principal); E78.5 Hyperlipidemia, unspecified; S02.2XXD Fracture of nasal bones, subsequent encounter for fracture with routine healing; I25.10 Atherosclerotic heart disease of native coronary artery without angina pectoris; I10 Essential (primary) hypertension; I25.2 Old myocardial infarction; Z99.89 Dependence on other enabling machines and devices; Z79.2 Long term (current) use of antibiotics; Z79.899 Other long term (current) drug therapy; Z99.81 Dependence on supplemental oxygen; Z96.642 Presence of left artificial hip joint; Z87.891 Personal history of nicotine dependence; Z98.890 Other specified postprocedural states

== ENCOUNTER 2018-01-20 05:53 | Day surgery (SDC) | payer MEDICARE, OTHER ==
[2018-01-13 15:52] VITALS: BMI 35.9
[~2018-01-20 05:53] MED LIST changes: +LACTATED RINGERS 1,000 ML IV SCH; +SODIUM CHLORIDE 0.9% 1,000 ML IV SCH; -ceFAZolin 1,000 MG in SODIUM CHLORIDE 0.9% IRRIGATIO 250 ML IRRIGATION ONE; -ceFAZolin IN SWFI 2 GM/20 ML SYRINGE IVP ONE
[2018-01-20 06:51] VITALS: TEMP 98.1
[2018-01-20] MEDS ORDERED: LIDOCAINE 1% INJ 10MG/ML (20 ML MDV) ONE (07:15)
[2018-01-20] MEDS ORDERED: PROPOFOL 10 MG/ML 20 ML VIAL IV ONE (07:15)
[2018-01-20] MEDS ORDERED: IV FLUID CONTINUATION 1,000 ML IV ONE (07:15)
--- NOTE | 2018-01-20 07:55 | P.PCN ---
Preoperative Diagnosis: Diagnosis Current myopathy Single chamber ICD Congestive heart failure Cinefluoroscopy of the leads revealed a single coil [employer] ICD lead screwed in the mid RV septum in stable position ICD was interrogated this is a [employer] visia af device serial number [id number] Pacing impedance 418 ohms from are related to RV coil RV defib 72 ohms R waves 7 mV Pacing threshold 0.5 V at 0.5 ms DFT testing under anesthesia a shock and T wave protocol was used to induce ventricular fibrillation. This was adequately and appropriately detected at least sensitivity and successfully internally defibrillated with a 20 J shock. A 10 J shock failed. Shocking impedance 76 ohms charge time 4 seconds no post shock noise no dropouts The device was then reprogrammed first cardioversion 20 J first defibrillation 35 J appropriate antitachycardia pacing cardioversion defibrillations programmed Result Fluoroscopically lead in stable position I DFT of 20 J Device reveals normal function 1 short run of nonsustained ventricular tachycardia noted Anesthesia: MAC
[2018-01-20 09:00] VITALS: BP 107/60; PULSE 68; RESP 20
== END 2018-01-20 08:50 | disposition home or self-care (01) ==
LOC: CATHEP 05:53
PROVIDERS: ATTEND Internal Medicine Clinical Cardiac Electrophysiology
DX: I42.8 Other cardiomyopathies (principal); I11.0 Hypertensive heart disease with heart failure; I50.23 Acute on chronic systolic (congestive) heart failure; E78.5 Hyperlipidemia, unspecified; Z82.49 Family history of ischemic heart disease and other diseases of the circulatory system; F17.210 Nicotine dependence, cigarettes, uncomplicated; G47.33 Obstructive sleep apnea (adult) (pediatric); E66.9 Obesity, unspecified; Z68.36 Body mass index [BMI] 36.0-36.9, adult; Z79.899 Other long term (current) drug therapy
CPT/HCPCS: 93642; 76000; J2001; J2704

== ENCOUNTER 2018-04-29 13:38 | Emergency (ER) | payer MEDICARE, OTHER ==
--- NOTE | 2018-04-29 14:19 | ED ---
General Adult HPI - General Chief complaint: Weakness Stated complaint: Dizziness Time Seen by Provider: 04/29/18 13:44 Source: patient, RN notes reviewed, old records reviewed Mode of arrival: ambulatory Limitations: no limitations - History of Present Illness Initial comments: 48-year-old male with past medical history cardiomyopathy, status post pacemaker defibrillator, diabetes presenting with chief complaint of dyspnea, generalized weakness, and blurry vision which began approximately one week prior. Patient states he has had increased lower extremity swelling. He reports blurry vision when she does endorse some double vision as well, worse in the left eye. Denies headache. Denies limb weakness or numbness. Denies chest pain. Denies cough. Denies abdominal pain. Denies nausea or vomiting. He does state he is feeling lightheaded and dizzy. He's had difficulty with ambulation secondary to both dyspnea and dizziness. 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 - Related Data Home Medications Medication Instructions Recorded Confirmed Carvedilol [Coreg] 6.25 mg PO BID 12/07/16 04/29/18 Atorvastatin [Lipitor] 20 mg PO DAILY 09/20/17 04/29/18 Lisinopril [Zestril] 5 mg PO BID 09/20/17 04/29/18 Furosemide [Lasix] 40 mg PO BID PRN 10/21/17 04/29/18 Allergies Allergy/AdvReac Type Severity Reaction Status Date / Time No Known Allergies Allergy Verified 04/29/18 14:15 Review of Systems ROS Statement: Those systems with pertinent positive or pertinent negative responses have been documented in the HPI. ROS Other: All systems not noted in ROS Statement are negative. Past Medical History Past Medical History: Eye Disorder, Osteoarthritis (OA), Sleep Apnea/CPAP/BIPAP Additional Past Medical History / Comment(s): SEE DR PABLO H&P HX chronic wounds on extremities. (STATES NONE AT THIS TIME) BLIND LT EYE. USES O2, STATES ATTACHED TO CPAP. HX HEMORRHOIDS, History of Any Multi-Drug Resistant Organisms: None Reported Past Surgical History: AICD, Hernia Repair, Joint Replacement, Orthopedic Surgery Additional Past Surgical History / Comment(s): LT Leg VARICOSE VEIN PROC. TOTAL LEFT HIP. RT ARM TENDON BICEP REPAIR. COLONOSCOPY Past Anesthesia/Blood Transfusion Reactions: Previous Problems w/ Anesthesia Additional Past Anesthesia/Blood Transfusion Reaction / Comment(s): WOKE UP DURING TOTAL HIP Type of Cardiac Device: AICD Device Placement Date:: 10/28/17 Past Psychological History: No Psychological Hx Reported Smoking Status: Former smoker Past Alcohol Use History: None Reported Past Drug Use History: None Reported - Past Family History Mother Family Medical History: Cancer Father Family Medical History: Deep Vein Thrombosis (DVT) Additional Family Medical History / Comment(s): POSS DVT, PATIENT STATES "HE HAD A BYPASS ON HIS LEG." General Exam Limitations: no limitations General appearance: alert, in no apparent distress Head exam: Present: atraumatic, normocephalic Eye exam: Present: normal appearance, EOMI (left eye Medial gaze palsy), conjunctival injection (Bilateral). Absent: PERRL (Pupils 2 mm bilaterally, sluggish, chemosis left eye,), periorbital swelling, periorbital tenderness ENT exam: Present: normal exam Neck exam: Present: normal inspection, tenderness Respiratory exam: Present: normal lung sounds bilaterally. Absent: respiratory distress, wheezes Cardiovascular Exam: Present: regular rate, normal rhythm GI/Abdominal exam: Present: soft, distended. Absent: tenderness, guarding Extremities exam: Present: pedal edema, other (Chronic venous stasis) Neurological exam: Present: alert, oriented X3, motor sensory deficit (Left eye medial gaze palsy). Absent: CN II-XII intact Psychiatric exam: Present: normal affect, normal mood Skin exam: Present: warm, dry, intact. Absent: cyanosis Course Vital Signs 04/29/18 04/29/18 13:40 15:30 Temperature 97.8 F Pulse Rate 87 86 Respiratory 22 16 Rate Blood Pressure 142/63 110/71 O2 Sat by Pulse 95 96 Oximetry EKG Findings - EKG Comments: EKG Findings:: EKG: Sinus tachycardia with PACs, low-voltage QRS, ventricular rate 101, [place] interval 124, QRS duration 94, QTC [address] segment elevation Medical Decision Making - Medical Decision Making 48-year-old male multiple chronic medical problems resenting with some gait instability, double vision and blurry vision which began on Wednesday which was more than 5 days prior to arrival. On exam patient has a medial gaze palsy on the left. There is concern for ischemic etiology, head CT is obtained which shows subacute infarct of the left joe. Patient has normal CBC, CMP does reveal mild hyperkalemia 5.2, mildly elevated bili, ALT, and alkaline phosphatase, likely secondary to congestion, patient is in mild heart failure exacerbation as well with pulmonary edema on chest x-ray, rales on exam. BNP of 1740. Patient is given Lasix for heart failure, aspirin both for cardioprotection and subacute ischemic stroke. He will be transferred to [facility] for further stroke evaluation. Accepting physician Dr. Montoya - Lab Data Result diagrams: 04/29/18 14:25 04/29/18 14:25 Lab Results 04/29/18 04/29/18 04/29/18 Range/Units 14:25 14:25 14:25 WBC 7.0 (3.8-10.6) k/uL RBC 5.21 (4.30-5.90) m/uL Hgb 16.4 (13.0-17.5) gm/dL Hct 54.7 H (39.0-53.0) % MCV 104.8 H (80.0-100.0) fL MCH 31.4 (25.0-35.0) pg MCHC 29.9 L (31.0-37.0) g/dL RDW 15.4 (11.5-15.5) % Plt Count 138 L (150-450) k/uL Neutrophils % 70 % Lymphocytes % 17 % Monocytes % 8 % Eosinophils % 1 % Basophils % 0 % Neutrophils # 4.9 (1.3-7.7) k/uL Lymphocytes # 1.2 (1.0-4.8) k/uL Monocytes # 0.6 (0-1.0) k/uL Eosinophils # 0.1 (0-0.7) k/uL Basophils # 0.0 (0-0.2) k/uL Hypochromasia Marked Macrocytosis Moderate PT (9.0-12.0) sec INR (<1.2) APTT (22.0-30.0) sec Sodium 139 (137-145) mmol/L Potassium 5.2 H (3.5-5.1) mmol/L Chloride 99 (98-107) mmol/L Carbon Dioxide 33 H (22-30) mmol/L Anion Gap 7 mmol/L BUN 21 H (9-20) mg/dL Creatinine 0.81 (0.66-1.25) mg/dL Est GFR (CKD-EPI)AfAm >90 (>60 ml/min/1.73 sqM) Est GFR (CKD-EPI)NonAf >90 (>60 ml/min/1.73 sqM) Glucose 116 H (74-99) mg/dL Calcium 9.2 (8.4-10.2) mg/dL Magnesium 1.7 (1.6-2.3) mg/dL Total Bilirubin 1.7 H (0.2-1.3) mg/dL AST 52 (17-59) U/L ALT 97 H (21-72) U/L Alkaline Phosphatase 157 H (38-126) U/L Total Creatine Kinase 69 (55-170) U/L CK-MB (CK-2) 1.7 (0.0-2.4) ng/mL CK-MB (CK-2) Rel Index 2.5 Troponin I 0.030 (0.000-0.034) ng/mL NT-Pro-B Natriuret Pep pg/mL Total Protein 6.9 (6.3-8.2) g/dL Albumin 3.8 (3.5-5.0) g/dL 04/29/18 04/29/18 Range/Units 14:25 14:25 WBC (3.8-10.6) k/uL RBC (4.30-5.90) m/uL Hgb (13.0-17.5) gm/dL Hct (39.0-53.0) % MCV (80.0-100.0) fL MCH (25.0-35.0) pg MCHC (31.0-37.0) g/dL RDW (11.5-15.5) % Plt Count (150-450) k/uL Neutrophils % % Lymphocytes % % Monocytes % % Eosinophils % % Basophils % % Neutrophils # (1.3-7.7) k/uL Lymphocytes # (1.0-4.8) k/uL Monocytes # (0-1.0) k/uL Eosinophils # (0-0.7) k/uL Basophils # (0-0.2) k/uL Hypochromasia Macrocytosis PT 12.5 H (9.0-12.0) sec INR 1.2 H (<1.2) APTT 24.5 (22.0-30.0) sec Sodium (137-145) mmol/L Potassium (3.5-5.1) mmol/L Chloride (98-107) mmol/L Carbon Dioxide (22-30) mmol/L Anion Gap mmol/L BUN (9-20) mg/dL Creatinine (0.66-1.25) mg/dL Est GFR (CKD-EPI)AfAm (>60 ml/min/1.73 sqM) Est GFR (CKD-EPI)NonAf (>60 ml/min/1.73 sqM) Glucose (74-99) mg/dL Calcium (8.4-10.2) mg/dL Magnesium (1.6-2.3) mg/dL Total Bilirubin (0.2-1.3) mg/dL AST (17-59) U/L ALT (21-72) U/L Alkaline Phosphatase (38-126) U/L Total Creatine Kinase (55-170) U/L CK-MB (CK-2) (0.0-2.4) ng/mL CK-MB (CK-2) Rel Index Troponin I (0.000-0.034) ng/mL NT-Pro-B Natriuret Pep 1790 pg/mL Total Protein (6.3-8.2) g/dL Albumin (3.5-5.0) g/dL Critical Care Time Critical Care Time: Yes Total Critical Care Time: 35 Disposition Clinical Impression: CVA (cerebral vascular accident), CHF (congestive heart failure) Disposition: OTHER INSTITUTION NOT DEFINED Condition: Serious Is patient prescribed a controlled substance at d/c from ED?: No Referrals: Victor Manuel Bianchi Jr, [Primary Care Provider] - 1-2 days Time of Disposition: 15:57 Decision Date: 04/29/18 - Out of Hospital Transfer - Req. Specs Out of Hospital Transfer - Requested Specifics: Other Emergency Center ( Transferred to [facility])
[2018-04-29 14:56] LABS: ALT 97 U/L (21-72); AST 52 U/L (17-59); Albumin 3.8 g/dL (3.5-5.0); Alkaline Phosphatase 157 U/L (38-126); Anion Gap 7 mmol/L; Basophils % (A) 0 %; Blood Urea Nitrogen 21 mg/dL (9-20); Calcium 9.2 mg/dL (8.4-10.2); Carbon Dioxide 33 mmol/L (22-30); Chloride 99 mmol/L (98-107); Eosinophils # (A) 0.1 k/uL (0-0.7); Eosinophils % (A) 1 %; Glucose 116 mg/dL (74-99); HCT 54.7 % (39.0-53.0); HGB 16.4 gm/dL (13.0-17.5); Hypochromasia Marked; Lymphocytes # (A) 1.2 k/uL (1.0-4.8); Lymphocytes % (A) 17 %; MCH 31.4 pg (25.0-35.0); MCHC 29.9 g/dL (31.0-37.0); MCV 104.8 fL (80.0-100.0); Macrocytosis Moderate; Magnesium 1.7 mg/dL (1.6-2.3); Mean Platelet Volume 7.7; Monocytes # (A) 0.6 k/uL (0-1.0); Monocytes % (A) 8 %; Neutrophils # (A) 4.9 k/uL (1.3-7.7); Neutrophils % (A) 70 %; Platelet Count 138 k/uL (150-450); Potassium 5.2 mmol/L (3.5-5.1); RBC 5.21 m/uL (4.30-5.90); RDW 15.4 % (11.5-15.5); Sodium 139 mmol/L (137-145); Total Bilirubin 1.7 mg/dL (0.2-1.3); Total Protein 6.9 g/dL (6.3-8.2)
[2018-04-29 14:58] LABS: INR 1.2 (<1.2); Partial Thromboplastin Time 24.5 sec (22.0-30.0); Prothrombin Time 12.5 sec (9.0-12.0)
--- NOTE | 2018-04-29 14:59 | XR ---
EXAMINATION TYPE: XR chest 2V DATE OF EXAM: 04/29/2018 COMPARISON: Prior chest x-ray 10/29/2017 HISTORY: Difficulty breathing TECHNIQUE: Frontal and lateral views of the chest are obtained. FINDINGS: The heart is enlarged. Technique is somewhat apical lordotic. Intracardiac defibrillator i s present, generator in the left pectoral region, lead is stable in the right ventricle. No pneumotho rax or pleural effusion. Central vascularity and interstitium are increased. Prominent lung volumes s uggest underlying COPD. Minimal patchy basilar density noted. IMPRESSION: Correlate for possible pulmonary venous hypertension and interstitial edema. Follow-up r ecommended.
[2018-04-29 15:22] LABS: Creatine Kinase MB 1.7 ng/mL (0.0-2.4); Troponin I 0.03 ng/mL (0.000-0.034)
[2018-04-29] MEDS ORDERED: FUROSEMIDE 10 MG/ML 4 ML VIAL IV STA (15:27)
--- NOTE | 2018-04-29 15:32 | CT ---
EXAMINATION TYPE: CT brain wo con DATE OF EXAM: 04/29/2018 COMPARISON: None HISTORY: Weakness and double vision CT DLP: 1142.4 mGycm. Automated Exposure Control for Dose Reduction was Utilized. TECHNIQUE: CT scan of the head is performed without contrast. FINDINGS: There is low attenuation present within the left joe. There is no acute intracranial hemo rrhage, mass effect, or midline shift identified. The ventricles and sulci are within normal limits in size. The globes are intact and the visualized sinuses are remarkable for inflammatory change in the maxillary sinuses. IMPRESSION: Subacute infarct suspected in the left joe. Consider MRI.
[2018-04-29] MEDS ORDERED: ASPIRIN 325 MG TAB PO STA (15:45)
[2018-04-29 17:18] VITALS: BP 120/89; PULSE 87; RESP 20; TEMP 98.1
== END 2018-04-29 17:18 | disposition other institution (70) ==
LOC: EC 13:38
DX: I63.9 Cerebral infarction, unspecified (principal); R29.701 NIHSS score 1; I11.0 Hypertensive heart disease with heart failure; I43 Cardiomyopathy in diseases classified elsewhere; I50.1 Left ventricular failure, unspecified; E87.5 Hyperkalemia; R74.0 Nonspecific elevation of levels of transaminase and lactic acid dehydrogenase [LDH]; R79.89 Other specified abnormal findings of blood chemistry; M19.90 Unspecified osteoarthritis, unspecified site; G47.30 Sleep apnea, unspecified; Z99.89 Dependence on other enabling machines and devices; Z95.810 Presence of automatic (implantable) cardiac defibrillator; Z96.642 Presence of left artificial hip joint; Z87.891 Personal history of nicotine dependence; Z87.820 Personal history of traumatic brain injury; Z79.899 Other long term (current) drug therapy
CPT/HCPCS: 36415; 93005; 83880; 80053; 82550; 82553; 83735; 84484; 85025; 85610; 85730; 71046; 70450; 99291; 96374; J1940

== ENCOUNTER → 2019-01-05 | Outpatient (CLI) | payer MEDICARE, OTHER ==
[2019-01-05 23:37] LABS: African American GFR (CKD) 121.6 (60.0-200.0); Albumin 4.7 g/dL (3.80-4.90); Albumin/Globulin Ratio 2.24 (1.60-3.17); Anion Gap 6.7 mmol/L (4.00-12.00); Carbon Dioxide 33.3 mmol/L (21.6-31.8); Chol/HDL Ratio 3.71; Globulin 2.1 g/dL (1.6-3.3); LDL Cholesterol,Calculated 36.8 mg/dL (0.0-131.0); Potassium 4.5 mmol/L (3.5-5.5); Total Protein 6.8 g/dL (6.2-8.2); VLDL Calculation 58.2 mg/dL (5.00-40.00)
== END | disposition home or self-care (01) ==
LOC: LABWHC1 15:35
PROVIDERS: ATTEND Nurse Practitioner Adult Health
DX: E78.2 Mixed hyperlipidemia (principal); I42.8 Other cardiomyopathies
CPT/HCPCS: 36415; 80053; 80061

== ENCOUNTER → 2019-12-30 | Outpatient (CLI) | payer MEDICARE, OTHER | END | disposition home or self-care (01) | LOC: LABMAIN 12:00 | PROVIDERS: ATTEND Internal Medicine Interventional Cardiology | DX: Z53.9 Procedure and treatment not carried out, unspecified reason (principal) ==

== ENCOUNTER → 2020-01-17 | Outpatient (CLI) | payer MEDICARE, OTHER ==
[2020-01-17 17:43] LABS: Appearance,Urine Clear (Clear); Bilirubin,Urine Negative (Negative); Blood,Urine Negative (Negative); Color,Urine Yellow; Glucose,Urine (UA) Negative (Negative); Ketones,Urine Negative (Negative); Leukocyte Esterase,Urine Negative (Negative); Nitrite,Urine Negative (Negative); Protein,Urine Negative (Negative); Specific Gravity,Urine 1.016 (1.001-1.035); Urobilinogen,Urine <2.0 mg/dL (<2.0)
[2020-01-17 17:45] LABS: Basophils % (A) 0 %; Eosinophils # (A) 0.1 k/uL (0-0.7); Eosinophils % (A) 2 %; HCT 50.9 % (39.0-53.0); HGB 15.9 gm/dL (13.0-17.5); Hypochromasia Slight; Lymphocytes # (A) 2.3 k/uL (1.0-4.8); Lymphocytes % (A) 26 %; MCH 31.5 pg (25.0-35.0); MCHC 31.2 g/dL (31.0-37.0); MCV 100.9 fL (80.0-100.0); Mean Platelet Volume 9.3; Monocytes # (A) 0.4 k/uL (0-1.0); Monocytes % (A) 4 %; Neutrophils # (A) 5.9 k/uL (1.3-7.7); Neutrophils % (A) 66 %; Platelet Count 177 k/uL (150-450); RBC 5.05 m/uL (4.30-5.90); RDW 13.2 % (11.5-15.5)
[2020-01-17 17:52] LABS: ALT 112 U/L (4-49); AST 61 U/L (17-59); African American GFR (CKD) >90 (>60 ml/min/1.73 sqM); Albumin 4.5 g/dL (3.5-5.0); Alkaline Phosphatase 127 U/L (38-126); Anion Gap 5 mmol/L; Blood Urea Nitrogen 16 mg/dL (9-20); Calcium 10.2 mg/dL (8.4-10.2); Carbon Dioxide 35 mmol/L (22-30); Chloride 100 mmol/L (98-107); Glucose 95 mg/dL (74-99); Non-African American GFR(CKD) >90 (>60 ml/min/1.73 sqM); Potassium 4.8 mmol/L (3.5-5.1); Sodium 140 mmol/L (137-145); Total Bilirubin 0.6 mg/dL (0.2-1.3); Total Protein 7.8 g/dL (6.3-8.2)
[2020-01-17 17:55] LABS: INR 0.9 (<1.2); Partial Thromboplastin Time 25.2 sec (22.0-30.0); Prothrombin Time 9.6 sec (9.0-12.0)
== END | disposition home or self-care (01) ==
LOC: LABPAT 16:29
PROVIDERS: ATTEND Orthopaedic Surgery
DX: Z01.818 Encounter for other preprocedural examination (principal); Z01.812 Encounter for preprocedural laboratory examination
CPT/HCPCS: 80053; 81003; 85025; 85610; 85730; 86850; 86900; 86901; 87070; 93005

== ENCOUNTER 2020-01-25 07:41 | Day surgery (SDC) | payer MEDICARE, OTHER ==
[2020-01-23 11:07] VITALS: BMI 39.5
[~2020-01-25 07:41] MED LIST changes: +ACETAMINOPHEN TAB 500 MG TAB PO ONE; +GABAPENTIN 300 MG CAP PO ONE; -LACTATED RINGERS 1,000 ML IV SCH; +MELOXICAM 7.5 MG TAB PO ONE; -SODIUM CHLORIDE 0.9% 1,000 ML IV SCH; +TRANEXAMIC ACID 1,000 MG in SODIUM CHLORIDE 0.9% 100 ML IVPB ONE
[2020-01-25] MEDS ORDERED: ONDANSETRON 4 MG/2 ML VIAL ONE (08:29)
[2020-01-25] MEDS: LACTATED RINGERS 1,000 ML IV SCH (08:40)
[2020-01-25] MEDS ORDERED: DEXAMETHASONE SOD PHOSPHATE 4 MG/ML 1 ML VIAL IV ONE (08:40)
[2020-01-25] MEDS ORDERED: diazePAM 5 MG TAB PO PRN (08:50)
[2020-01-25] MEDS ORDERED: HYDROcodone/APAP 5-325MG 1 EACH TAB PO PRN (08:50)
[2020-01-25] MEDS ORDERED: NALOXONE 0.4 MG/ML 1 ML VIAL IV PRN (08:50)
[2020-01-25] MEDS ORDERED: ONDANSETRON 4 MG/2 ML VIAL IVP PRN (08:50)
[2020-01-25] MEDS ORDERED: MAGNESIUM HYDROXIDE 2,400 MG/10 ML CUP PO PRN (08:50)
[2020-01-25] MEDS ORDERED: HYDROmorphone 0.5 MG/0.5 ML SYRINGE IVP PRN ×2 (08:50)
[2020-01-25] MEDS ORDERED: HYDROmorphone 1 MG/ML 1 ML SYRINGE IVP PRN (08:50)
[2020-01-25] MEDS ORDERED: hydrOXYzine pamoate 25 MG CAP PO PRN (08:50)
[2020-01-25] MEDS ORDERED: LIDOCAINE 1% INJ 10MG/ML (20 ML MDV) ONE (09:06)
[2020-01-25] MEDS ORDERED: MIDAZOLAM 2 MG/2 ML VIAL ONE (09:06)
[2020-01-25] MEDS ORDERED: PHENYLEPHRINE-0.9% NACL SYG 1 MG/10 ML SYRINGE ONE (09:06)
[2020-01-25] MEDS ORDERED: HEPARIN SODIUM,PORCINE 10,000 UNIT/ML 1 ML VIAL ONE (09:06)
[2020-01-25] MEDS ORDERED: SODIUM CHLORIDE 0.9% 100 ML BAG ONE (09:06)
[2020-01-25] MEDS ORDERED: fentaNYL (PF) 50 MCG/ML 2 ML AMP ONE (09:06)
[2020-01-25] MEDS ORDERED: TRANEXAMIC ACID 1,000 MG/10 ML VIAL ONE (09:06)
[2020-01-25] MEDS ORDERED: PROPOFOL 10 MG/ML 20 ML VIAL IV ONE (09:06)
[2020-01-25] MEDS ORDERED: SODIUM CHLORIDE 0.9% IRRIG 1,000 ML BTL IRRIGATION ONE (09:06)
[2020-01-25] MEDS ORDERED: ceFAZolin 3,000 MG in SODIUM CHLORIDE 0.9% IRRIGATIO 3,000 ML IRRIGATION ONE (09:08)
[2020-01-25] MEDS: ROPIVACAINE 246.25 MG, EPINEPHrine 0.5 MG, KETOROLAC 30 MG, cloNIDine HCL/PF 80 MCG, WA... MISCELLANE ONE ×10 (09:35→10:36)
--- NOTE | 2020-01-25 10:42 | P.OP ---
Date of Procedure: 01/25/20 Preoperative Diagnosis: Severe osteoarthritis right hip Postoperative Diagnosis: Severe osteoarthritis right hip Procedure(s) Performed: Right total hip arthroplasty with a direct anterior approach Implants: Dempsey and nephew Polarstem size 6 standard [employer]sey [employer] Nephew R3, 3 hole acetabular shell, 52 mm [employer]hew reflection 6.5 mm cancellus screw, 20 mm 2 [employer]hew R3, XLPE 20 acetabular liner [employer] Nephew Oxinium femoral head 36 m, +4 All components were press-fit. The articulation is Oxinium on polyethylene. Anesthesia: spinal Surgeon: Constantino Comer Telegraph Plant Maintainer #1: Melissa Horne Estimated Blood Loss (ml): 410 (237 mL returned with Cell Saver) Pathology: other (Femoral head) Condition: stable Disposition: PACU Indications for Procedure: After failure of conservative treatment we discussed the surgical and nonsurgical treatment options at length. Patient wishes to proceed with a total hip arthroplasty with a direct anterior approach. Complications specific to this procedure were discussed at length, including but not limited to infection, leg length discrepancy, dislocation, and nerve injury. Covid-19 was also discussed at length with the patient, and they are aware of the current policies and procedures. The patient was given the option of delaying surgery, but they elect to proceed knowing these risks. Patient is aware of all these complications and informed consent was obtained Operative Findings: The operative findings are consistent with severe osteoarthritis of the right hip Description of Procedure: Patient was seen and evaluated in the preoperative area, consent was reviewed, and the surgical site was marked with a skin marker. Patient was then brought to the operating room and given prophylactic antibiotics intravenously. 1 g of Tranexamic acid was also given. A spinal anesthetic was administered by the anesthesia department. The patient was then placed on the Aldrich table with the bony prominences well-padded. The hip area was then prepped and draped in usual sterile fashion. A universal timeout was then performed, which confirmed the patient's name, surgical site, ALLERGIES, and procedure being performed. Next the incision site was located at 1 cm distal and 1 cm lateral to the anterior superior iliac spine. The skin and subcutaneous tissues were sharply incised. Incision was carefully dissected down to the fascia overlying the tensor fascia gilles muscle. This fascia was then incised in line with the incision. Next, using blunt finger dissection, the tensor fascia gilles muscle was dissected off its investing fascia. The muscle was then carefully retracted laterally with a cobra retractor over the lateral neck of the femur. Next, the circumflex vessels were identified and cauterized using the AquaMantis device. The anterior hip capsule was then exposed. The capsule was then opened and an inverted T fashion. Cobra retractors were then placed intracapsularly. The proximal femur was then visualized. The femoral neck was then osteotomized appropriate level above the lesser trochanter. Small amount of traction was placed with the Aldrich table. A small wedge of bone was then removed from the remaining femoral head. Next, using a corkscrew femoral head was easily removed from the acetabulum. On gross visual inspection, the femoral head had complete loss of articular cartilage in multiple periarticular osteophytes. Attention was then turned to the acetabulum. the acetabulum was exposed and any remaining labrum was excised. Sequential reaming of the acetabulum was performed using fluoroscopic guidance. When the appropriate size was reached, a trial was then placed. The position and fit of the trial was checked with fluoroscopy. The trial was then removed. Then, using fluoroscopic guidance, the final implant was impacted at 20 of anteversion and 40 of abduction, and fully seated in the acetabulum. 2 screws were then placed in the acetabulum. Again fluoroscopy was used to check position of the screws. Next, the liner was then impacted, with a 20 elevated liner located in the anterior superior quadrant. Component locking was confirmed. Attention was then directed to the femur. With the aid of the Aldrich table, the femur was externally rotated to approximately 130, extended, and abducted under the opposite leg. A side hook was then placed under the proximal femur, and the side hook elevator was used to elevate the proximal femur. Retractors were then placed. A capsular release was performed, as well as a release of the conjoined tendon, which afforded excellent visualization of the proximal femur. Next, a box osteotome was used to lateralize the proximal femur. A vise hand was then used to locate the femoral canal. Sequential broaching was then performed with appropriate size which afforded excellent fixation in the proximal femur. A trial was then placed with appropriate head and neck, and the hip was gently reduced with the aid of the Aldrich table. Fluoroscopy was then used to check position of the components, as well as to ensure equal leg lengths. The hip was then gently dislocated and the trials were then removed. Final implants were then impacted and the hip was again reduced. Final fluoroscopic x-rays confirmed that the components were in anatomic position, as well as equal leg lengths. The hip was also taken through range of motion, and found to be stable. The hip was then copiously irrigated with antibiotic solution with pulsatile lavage. The hip was then irrigated with Irrisept solution. The soft tissues were then injected with a ropivacaine solution, which consisted of 246.25 mg of ropivacaine, 0.5 mg of epinephrine, 30 mg of Toradol, 80 g of clonidine, and 48.45 mL of sterile water, for a total of 100 mL of fluid injected. A second dose of 1 g of Tranexamic acid was also given. the fascia was then closed with 2-0 strata fix suture. The subcutaneous tissue was closed with 3-0 Vicryl. The subcuticular tissue was closed with 3-0 strata fix suture. The skin was then closed with Dermabond glue and a sterile silver dressing. The patient was then transferred to the recovery room in stable condition. The transportation assistant BOOM Luo was required due to the complexity of surgery, and the need for skilled surgical manager for positioning, draping, exposure, retraction, and closure of the wound.
--- NOTE | 2020-01-25 11:00 | XR ---
EXAMINATION TYPE: XR Hip Limited RT DATE OF EXAM: 01/25/2020 COMPARISON: NONE HISTORY: Postop TECHNIQUE: One view submitted. FINDINGS: There is postsurgical change in near anatomic alignment. There is soft tissue edema and emphysema. IMPRESSION: 1. Postoperative change. Appears in near-anatomic alignment.
[2020-01-25] MEDS ORDERED: LACTATED RINGERS 1,000 ML IV ONE (11:05)
--- NOTE | 2020-01-25 11:25 | FL ---
EXAMINATION TYPE: FL guidance operating room DATE OF EXAM: 01/25/2020 HISTORY: Fluoroscopy time 23 seconds of fluoroscopy provided. IMPRESSION: 1. Fluoroscopy time.
[2020-01-25] MEDS: HYDROmorphone 0.5 MG/0.5 ML SYRINGE IVP ONE ×2 (13:50→16:18)
[2020-01-25] MEDS: MELOXICAM 7.5 MG TAB PO SCH (19:44)
[2020-01-25] MEDS: SODIUM CHLORIDE 0.9% 1,000 ML IV SCH (19:44)
[2020-01-25] MEDS: ASPIRIN 325 MG TAB PO SCH (20:05)
[2020-01-25] MEDS: HYDROcodone/APAP 5-325MG 1 EACH TAB PO PRN (20:06)
[2020-01-25] MEDS: SACUBITRIL/VALSARTAN 24 MG-26 MG TABLET PO SCH (20:47)
[2020-01-25] MEDS ORDERED: SENNOSIDES-DOCUSATE SODIUM 1 EACH TAB PO SCH (21:00)
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
[2020-01-26] MEDS: SODIUM CHLORIDE 0.9% 1,000 ML IV SCH (02:26)
[2020-01-26] MEDS: HYDROcodone/APAP 5-325MG 1 EACH TAB PO PRN (07:06)
[2020-01-26 07:19] VITALS: BP 97/59; PULSE 77; RESP 20; TEMP 98.5
[2020-01-26 07:27] LABS: Basophils % (A) 0 %; Eosinophils # (A) 0.1 k/uL (0-0.7); Eosinophils % (A) 1 %; HCT 41.1 % (39.0-53.0); Hypochromasia Slight; Lymphocytes # (A) 1.5 k/uL (1.0-4.8); Lymphocytes % (A) 15 %; MCH 32.1 pg (25.0-35.0); MCHC 31.7 g/dL (31.0-37.0); MCV 101.4 fL (80.0-100.0); Mean Platelet Volume 9.1; Monocytes # (A) 0.6 k/uL (0-1.0); Monocytes % (A) 6 %; Neutrophils # (A) 7.5 k/uL (1.3-7.7); Neutrophils % (A) 75 %; Platelet Count 117 k/uL (150-450); RBC 4.05 m/uL (4.30-5.90); RDW 12.8 % (11.5-15.5)
[2020-01-26] MEDS ORDERED: carvediloL 12.5 MG TAB PO SCH (07:30)
[2020-01-26] MEDS ORDERED: HYDROcodone/APAP 7.5-325MG 1 EACH TAB PO PRN ×2 (08:21)
--- NOTE | 2020-01-26 08:25 | P.DS ---
Providers Expected date of discharge: 01/26/20 Attending physician: Constantino Comer Consults: 01/25/20 08:50 Consult Physician Routine Consulting Provider: Gabe Palmer Consult Reason/Comments: medical management Do you want consulting provider notified?: Yes Primary care physician: Jeremías Tipton - Discharge Diagnosis(es) (1) Osteoarthritis of right hip Current Visit: Yes Status: Acute (2) Status post hip replacement Current Visit: No Status: Acute Hospital Course: This is a 50-year-old male with known history of degenerative arthritis of the right hip. The patient presented for evaluation as an outpatient. After discussion and consideration patient elects to proceed with total hip arthroplasty. The patient is seen preoperatively by Dr. Comer and medically cleared for surgery by their primary care physician. Patient is admitted to [facility] on 01/25/2020 for total hip arthroplasty. The procedure is performed without complication or sequelae. The patient is doing well postoperatively. Labs and vital signs are stable on day of discharge. On day of discharge patient's hip incision is healing well. There is minimal erythema. There is no drainage noted at this time. There is minimal soft ti ssue swelling to the hip and thigh. Patient has full foot and ankle motion without difficulty or pain. Calf is soft and nontender to palpation. Neurovascular status to the right lower extremity is intact. Patient is discharged home in good condition. Opioid start talking form is reviewed and signed. Please see med rec for accurate list of home medications. Plan - Discharge Summary Discharge Rx Participant: No New Discharge Prescriptions: New Aspirin 325 mg PO BID #60 tab HYDROcodone/APAP 7.5-325MG [[place] 7.5-325] 1 - 2 tab PO Q6H PRN #32 tab PRN Reason: Pain Sennosides [Senokot] 2 tab PO DAILY PRN #60 tablet PRN Reason: Constipation No Action Atorvastatin [Lipitor] 20 mg PO DAILY Spironolactone [Aldactone] 25 mg PO DAILY Multivitamins, Thera [Multivitamin (formulary)] 1 tab PO DAILY Famotidine [Pepcid] 20 mg PO DAILY Ubidecarenone [Co Q-10] 100 mg PO DAILY Sacubitril/Valsartan [Entresto 24 mg-26 mg Tablet] 1 each PO DAILY Fenofibrate Nanocrystallized [Tricor] 145 mg PO BID Carvedilol [Coreg] 25 mg PO DAILY Aspirin [Adult Low Dose Aspirin EC] 81 mg PO DAILY Acetaminophen-Codeine 300-30mg [Tylenol w/codeine #3] 1 tab PO PRN PRN Reason: Pain Discharge Medication List Atorvastatin [Lipitor] 20 mg PO DAILY 09/20/17 [History] Aspirin [Adult Low Dose Aspirin EC] 81 mg PO DAILY 01/24/20 [History] Carvedilol [Coreg] 25 mg PO DAILY 01/24/20 [History] Famotidine [Pepcid] 20 mg PO DAILY 01/24/20 [History] Fenofibrate Nanocrystallized [Tricor] 145 mg PO BID 01/24/20 [History] Multivitamins, Thera [Multivitamin (formulary)] 1 tab PO DAILY 01/24/20 [History] Sacubitril/Valsartan [Entresto 24 mg-26 mg Tablet] 1 each PO DAILY 01/24/20 [History] Spironolactone [Aldactone] 25 mg PO DAILY 01/24/20 [History] Ubidecarenone [Co Q-10] 100 mg PO DAILY 01/24/20 [History] Acetaminophen-Codeine 300-30mg [Tylenol w/codeine #3] 1 tab PO PRN 01/25/20 [History] Aspirin 325 mg PO BID #60 tab 01/26/20 [Rx] HYDROcodone/APAP 7.5-325MG [[place] 7.5-325] 1 - 2 tab PO Q6H PRN #32 tab 01/26/20 [Rx] Sennosides [Senokot] 2 tab PO DAILY PRN #60 tablet 01/26/20 [Rx] Follow up Appointment(s)/Referral(s): Constantino Comer DO [Doctor of Osteopathic Medicine] - 2 Weeks Patient Instructions/Handouts: Anterior Hip Replacement (DC) Activity/Diet/Wound Care/Special Instructions: Weightbearing as tolerated with walker. Leave dressing intact. Dressing may be removed by home care nurse or by patient in 10 days. May shower with dressing on. Please take aspirin 325mg twice daily for 30 days to prevent blood clots. Recommend use of compression stockings daily until follow up to help prevent swelling and blood clots. May remove at night before sleeping. Please follow-up with [facility] in 2 weeks and call with any questions or concerns, . Discharge Disposition: HOME WITH HOME HEALTH SERVICES
[2020-01-26] MEDS ORDERED: FENOFIBRATE 160 MG TAB PO SCH (09:00)
[2020-01-26] MEDS ORDERED: NON FORMULARY DRUG (Ubidecarenone [Co Q-10] 100 MG Capsule) PO SCH (09:00)
[2020-01-26] MEDS ORDERED: ATORVASTATIN 20 MG TAB PO SCH (09:00)
[2020-01-26] MEDS ORDERED: SACUBITRIL/VALSARTAN 24 MG-26 MG TABLET PO SCH (09:00)
[2020-01-26] MEDS ORDERED: MULTIVITAMINS, THERA 1 EACH TAB PO SCH (09:00)
[2020-01-26] MEDS ORDERED: FAMOTIDINE 20 MG TAB PO SCH (09:00)
[2020-01-26] MEDS ORDERED: SPIRONOLACTONE 25 MG TAB PO SCH (09:00)
[2020-01-26] MEDS: LACTATED RINGERS 1,000 ML IV SCH (09:20)
[2020-01-26] MEDS: MELOXICAM 7.5 MG TAB PO SCH (09:39)
[2020-01-26] MEDS: ASPIRIN 325 MG TAB PO SCH (09:39)
[2020-01-26] MEDS: SACUBITRIL/VALSARTAN 24 MG-26 MG TABLET PO SCH (09:40)
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
== END 2020-01-26 12:34 | disposition home health service (06) ==
LOC: OR 07:41 → 4SSUR 16:26 → OR 01-26 12:34
PROVIDERS: ATTEND Orthopaedic Surgery
DX: M16.11 Unilateral primary osteoarthritis, right hip (principal); Z96.642 Presence of left artificial hip joint; J45.909 Unspecified asthma, uncomplicated; I11.0 Hypertensive heart disease with heart failure; I50.23 Acute on chronic systolic (congestive) heart failure; I25.10 Atherosclerotic heart disease of native coronary artery without angina pectoris; I25.2 Old myocardial infarction; I42.8 Other cardiomyopathies; E78.2 Mixed hyperlipidemia; J43.9 Emphysema, unspecified; G47.33 Obstructive sleep apnea (adult) (pediatric); J96.11 Chronic respiratory failure with hypoxia; K76.0 Fatty (change of) liver, not elsewhere classified; K90.0 Celiac disease; H54.62 Unqualified visual loss, left eye, normal vision right eye; Z79.82 Long term (current) use of aspirin; Z79.899 Other long term (current) drug therapy; Z79.02 Long term (current) use of antithrombotics/antiplatelets; Z79.51 Long term (current) use of inhaled steroids; Z86.73 Personal history of transient ischemic attack (TIA), and cerebral infarction without residual deficits; Z95.810 Presence of automatic (implantable) cardiac defibrillator; Z82.49 Family history of ischemic heart disease and other diseases of the circulatory system; Z80.9 Family history of malignant neoplasm, unspecified; Z87.891 Personal history of nicotine dependence; Z87.19 Personal history of other diseases of the digestive system; Z98.890 Other specified postprocedural states; K21.9 Gastro-esophageal reflux disease without esophagitis; Z99.81 Dependence on supplemental oxygen
CPT/HCPCS: 94660 ×2; 97161; 97535; 97165; 86891; 85025; 88300; 73501; 27130; P9022; C1776; J2250; J0171; J1644; J1100; J0690 ×3; J2405; J2001; J3010; J1885; J1170 ×2; J2795; J2370; J2704; J0735; 86850; 86900; 86901